=== PATIENT | male | born 1940 | race Caucasian/White ===

== ENCOUNTER 2016-12-13 10:17 | Inpatient (IN) ==
[2016-12-13] MEDS ORDERED: ASPIRIN 325 MG TABLET PO STA (10:35)
[2016-12-13] MEDS ORDERED: NITROGLYCERIN 2% OINT 1 INCH/GM PACK TOP STA (10:35)
[2016-12-13] MEDS ORDERED: ONDANSETRON 4 MG/2 ML VIAL IV STA (10:35)
[2016-12-13] MEDS ORDERED: ASPIRIN 325 MG TABLET ONE (10:45)
[2016-12-13 10:46] LABS: Basophils % 0.2 % (0.0-0.8); Hemoglobin 10.7 GM/DL (14.0-18.0); Immature Granulocytes % 0.4 %; Immature Granulocytes Absolute 0.05 #; Lymphocytes # 0.7 10*3/uL (1.4-4.0); Lymphocytes % 5.5 % (21.2-54.2); Mean Corpuscular HGB Conc 30.6 GM/DL (32-36); Mean Corpuscular Hemoglobin 24 PG (27-34); Mean Corpuscular Volume 79.7 FL (87-102); Mean Platelet Volume 11.2 FL (9.6-12.0); Monocytes # 0.7 10*3/uL (0.11-0.8); Monocytes % 5.2 % (1.7-12.7); Neutrophils # 11.8 10*3/uL (1.4-7.4); Neutrophils % 88.7 % (38.7-73.9); Platelet Count 290 T/CUMM (130-400); Red Blood Count 4.39 MC/CUMM (3.8-5.5); Red Cell Distribution Width 18.6 % (9.3-17.3); White Blood Count 13.3 T/CUMM (4-12)
[2016-12-13] MEDS ORDERED: NITROGLYCERIN 2% OINT 1 INCH/GM PACK TOP ONE (10:46)
[2016-12-13] MEDS ORDERED: ONDANSETRON 4 MG/2 ML VIAL ONE (10:46)
[2016-12-13 10:57] LABS: Partial Thromboplastin Time 26.8 SECS (0-40)
--- NOTE | 2016-12-13 10:57 | EKG Report ---
Stationary ECG Study [facility] ER Test Date: 12/13/2016 10:23:10 AM Pat Name: DALILA BEY Department: Room: Gender: M Digital Media Planner: : 1940 Requested by: Archie Worrell Order Number: [id number] Jag MD: MENDEZ IRWIN Intervals [place] Rate: 119 P: 78 [place]: 141 QRS: 6 QRSD: 94 T: 107 QT: 290 QTc: 361 Interpretive Statements SINUS TACHYCARDIA LEFT VENTRICULAR HYPERTROPHY AND ST-T CHANGE CANNOT RULE OUT ANTEROLATERAL ISHCEMIA Electronically Signed On 12-14-16 12:30:22 CDT by MENDEZ IRWIN [email or web address]
[2016-12-13 10:59] LABS: Alanine Aminotransferase < 9 U/L (16-61); Albumin 2.9 G/DL (3.4-5.0); Alkaline Phosphatase 75 U/L (45-117); Aspartate Amino Transferase 20 U/L (0-37); Bilirubin,Total < 0.39 MG/DL (0.2-1.0); Blood Urea Nitrogen 15 MG/DL (7-18); Calcium 8.6 MG/DL (8.5-10.1); Glucose 102 MG/DL (74-106); Potassium 3.6 MMOL/L (3.5-5.1); Sodium 143 MMOL/L (136-145); Total Protein 6.3 G/DL (6.4-8.3)
--- NOTE | 2016-12-13 11:25 | EKG Report ---
Stationary ECG Study [facility] ER Test Date: 12/13/2016 11:24:23 AM Pat Name: DALILA BEY Department: Room: Gender: M Property Claims Manager: : 1940 Requested by: Archie Worrell Order Number: [id number] Reading MD: MENDEZ IRWIN Intervals [place] Rate: 107 P: 77 [place]: 152 QRS: 5 QRSD: 93 T: 101 QT: 320 QTc: 382 Interpretive Statements SINUS TACHYCARDIA LEFT VENTRICULAR HYPERTROPHY AND ST-T CHANGE CANNOT RULE OUT ANTEROLATERAL ISCHEMIA Electronically Signed On 12-14-16 12:32:59 CDT by MENDEZ IRWIN [email or web address]
--- NOTE | 2016-12-13 11:30 | XRay Report ---
History: Chest pain Date: 12/13/2016 Study: Chest x-ray AP portable Comparison exam: May 10, 2016 The cardiac silhouette is upper normal size. There is no mediastinal mass. There is moderate aortic arch calcification. There is no gross pleural effusion. There are some chronic emphysematous changes. There is some mild hazy parenchymal disease in the right mid to lower lung, which could represent pneumonia or early asymmetric pulmonary edema. Osseous structures are unchanged with osteopenia and mild thoracic spondylosis. Impression: Hazy edema/infiltrate in the right mid to lower lung PROCEDURE INTERPRETED AT [facility] DEPARTMENT OF RADIOLOGY Final Report Signed by: Dr. Jodie Ramos
--- NOTE | 2016-12-13 11:35 | Emergency Department Note ---
Hyun Gamboa Brittany, am scribing for, and in the presence of, Mina Cerrato MD 10:50. Saqib Gamboa Doug C, MD, personally performed the services described in this documentation, ascribed by Aylin Purvis in my presence, and it is both accurate and complete . Arrival - Arrival Chief Complaint: Chest Pain ED Nursing Triage Note: c/o arm and shoulder pain onset friday night. pt had onset of chest pain and nausea and sob this am Mode of Arrival: Stretcher Limitations: No Limitations Source: Patient Time Seen by Provider: 12/13/16 10:35 - History of Present Illness HPI Narrative: Patient is a 76-year-old white male presents emergency room complaining of chest pain. Patient states this occurred when he was on his way to feed his dogs this morning around 6 AM. Patient states the pain was associated with diaphoresis and nausea and vomiting. Patient states he has never had any heart problems and does not have similar history of chest pain in the past. Patient called an ambulance and was given to sublingual nitroglycerin he is now pain- free. He denies any radiation of discomfort. Onset (ago): hour(s) (Started at 0600 this morning) Consistency: constant Severity: moderate Allergies/Adverse Reactions: Allergies Allergy/AdvReac Type Severity Reaction Status Date / Time No Known Allergies Allergy Verified 05/10/16 13:17 Home Medications: Home Medications Medication Instructions Recorded Confirmed Type Olmesartan [Benicar] 20 mg PO BEDTIME 11/01/14 12/13/16 History Omeprazole 20 mg PO BEDTIME 11/01/14 12/13/16 History Albuterol/Ipratropium Neb [Duoneb] 3 ml RESP TX TID #90 nebulization 05/12/16 Rx solution Tiotropium [place] [Spiriva 2 puff INH QAM 12/13/16 12/13/16 History Respimat] Review of System - Review of System 12 point system: reviewed and no additional remarkable complaints except as stated - Review of System Constitutional: Present: chills. Absent: diaphoresis Cardiovascular: Present: chest pain Gastrointestinal: Present: nausea, vomiting. Absent: hematemesis, melena Medical,Surgical,& Family Hx - Medical History Cardio: History of: Hypertension No history of: Cardiac Dysrhythmia, CHF, IA Psychological: History of: Anxiety Disorders Neurology: History of: Cerebrovascular Accident, TIA No history of: Seizures HEENT: No history of: Oral Cancer (THROAT CANCER-1999) Endocrine: History of: Dyslipidemia Respiratory: History of: Bronchitis, COPD, Respiratory Problems (o2 at home at 2liters) Genitourinary: History of: Prostate Problems (prostate cancer) Gastrointestinal: History of: GERD, GI Problems (stomach ulcer, part of stomach removed 1969) Musculoskeletal: History of: Back/Neck Problems (arthritis in neck) Hematology: No history of: Blood Transfusion Reaction Other: History of: Cancer (prostate,esophageal) No history of: Anesthesia Reactions - Surgical History Cardiac Surgeries: Sugical HX of: Cardiac Catheterization HEENT Surgeries: Surgical HX of: Eye Surgery (cataracts) Patient denies: Tonsilectomy & Adenoidectomy Abdominal Surgeries: Surgical HX of: Abdominal Surgery (stomach surgery 1969), Appendectomy, Colonoscopy, EGD Patient denies: Cholecystectomy Reproductive Surgeries: Surgical HX of;: Prostate Surgery (prostate ca) Orthopedic Surgeries: Patient denies;: Orthopedic Surgery, Total Hip Replacement, Total Knee Replacement - Family History Family History: Reports;: Family Heart Disease (mom) Denies;: Family Anesthesia Reaction, Family Cancer, Family Diabetes, Family Hypertension, Family Psychiatric Problems, Family Stroke - Social History Smoking Status: Smoker, status unknown Frequency of Alcohol Use: None Type of Drug Use: None Exam Vital Signs: Vital Signs Temperature 99.0 F 12/13/16 10:21 Pulse Rate 115 H 12/13/16 10:21 Respiratory Rate 16 12/13/16 10:38 Blood Pressure 128/90 12/13/16 10:21 O2 Sat by Pulse Oximetry 96 12/13/16 10:38 - General General appearance: alert, in no apparent distress - Head Head exam: Present: atraumatic, normocephalic, normal inspection - Eye Eye exam: Present: normal appearance, PERRL, EOMI. Absent: scleral icterus, conjunctival injection, nystagmus, miosis, mydriasis, periorbital swelling, periorbital tenderness - ENT ENT exam: Present: normal exam, normal oropharynx, mucous membranes moist, normal external ear exam - Neck Neck exam: Present: normal inspection, full ROM, trachea midline. Absent: tenderness, meningismus, lymphadenopathy, thyromegaly - Chest Chest inspection: Present: normal inspection, symmetric chest wall rise. Absent : tenderness, rash, abscess - Respiratory Respiratory exam: Present: normal lung sounds bilaterally. Absent: prolonged expiratory phase, rales, respiratory distress, rhonchi, stridor, wheezes - Cardiovascular Cardiovascular exam: Present: regular rate, irregular rhythm, normal heart sounds. Absent: murmur, rubs, gallop, clicks - Abdominal Exam Abdominal exam: Present: soft, normal bowel sounds. Absent: distention, tenderness, guarding, rebound, rigidity - Rectal Exam Rectal exam: Present: deferred - Extremities Exam Extremities exam: Present: normal inspection, full ROM, normal capillary refill. Absent: tenderness, pedal edema, joint swelling, calf tenderness - Back Exam Back exam: Present: normal inspection, full ROM. Absent: tenderness, muscle spasm, rashes - Neurological Exam Neurological exam: Present: alert, oriented X3, CN II-XII intact. Absent: motor sensory deficit - Psychiatric Psychiatric exam: Present: normal affect, normal mood. Absent: depressed, agitated, anxious, flat affect, manic - Skin Skin exam: Present: warm, dry, intact, normal color. Absent: rash, cyanosis, diaphoresis, erythema, pallor, mottled Course Course Narrative: Patient's clinical presentation, laboratory and radiographic and electrocardiographic findings were discussed with Dr. Madrid. He will see the patient emergency room and taken to the cardiac catheterization laboratory. Results - Labs CBC & BMP: 12/13/16 10:30 12/13/16 10:30 Lab Results: I have reviewed the patients labs Labs: Laboratory Tests 12/13/16 12/13/16 10:30 10:30 Sodium 143 Potassium 3.6 Chloride 112 H Carbon Dioxide 26 Anion Gap 8.6 BUN 15 Creatinine 0.70 GFR Calculation 101 BUN/Creatinine Ratio 21.00 H Glucose 102 Calculated Osmolality 285.0 Calcium 8.6 Total Bilirubin < 0.39 AST 20 ALT < 9 L Alkaline Phosphatase 75 Troponin I 2.310 H Total Protein 6.3 L Albumin 2.9 L Globulin 3.4 Albumin/Globulin Ratio 0.8 L - EKG EKG results: interpreted by ERMD EKG shows: tachycardia (Heart rate 119 bpm) - Impressions T-wave inversion in V5 and 6. Positive LVH by voltage criteria - Diagnostic Findings Procedure: Chest x-ray: report reviewed by me (Hazy edema/infiltrate in the right mid to lower lung) Disposition Clinical Impression: Non-STEMI (non-ST elevated myocardial infarction) Case discussed with: patient, patient's family Disposition: Still a Patient Condition: Guarded Time of Disposition: 11:35
[2016-12-13] MEDS ORDERED: LIDOCAINE 1% 20 ML VIAL ONE (11:44)
[2016-12-13] MEDS ORDERED: HEPARIN/NACL 0.9% 2 UNITS/ML 1,000 ML IV ONE (11:44)
[2016-12-13] MEDS ORDERED: diphenhydrAMINE CAP 25 MG CAPSULE ONE (11:58)
[2016-12-13] MEDS ORDERED: DIAZEPAM 5 MG TABLET ONE (11:58)
[2016-12-13] MEDS ORDERED: diphenhydrAMINE CAP 50 MG CAPSULE PO ONE (12:02)
[2016-12-13] MEDS ORDERED: DIAZEPAM 5 MG TABLET PO ONE (12:02)
--- NOTE | 2016-12-13 12:10 | Cardiology History & Physical ---
History of Present Illness History of present illness: Cardiology history and physical 76-year-old man awakened around 6 AM with chest pain and shortness of breath and diaphoresis. EKG shows sinus rhythm with LVH with strain pattern. Troponin level 2.31. Creatinine 0.7. Patient is diaphoretic pulse is 90. O2 sat 94% on 2 L cannula. No prior history of ND. No history of CHF. The patient has emphysema followed by Dr. Mauro. Chronic hypertension taking Benicar 20 mg daily. No history of diabetes. History of TIA but no stroke. The patient is an active smoker and still smokes about 5 cigarettes daily. He does not drink any alcohol. 6 feet 1 inches tall , approximately 135 pounds. Status post bilateral carotid artery stents in [place] around 2012. Status post partial gastrectomy for ulcer disease in the late . Status post [facility] 1979 with abdominal expiration. No allergies. Home medications Prilosec 20 mg daily and Benicar 20 mg daily. 59 years. He and his live in [place]. They have 7 children. EKG shows sinus rhythm with LVH with strain pattern. Chest x-ray shows COPD lab data Sodium 143 potassium 3.6 chloride 112 CO2 26 BUN 15 creatinine 0.7 glucose 102 AST 20 ALT 9 INR 1.0 white count 13.3 hemoglobin 10.7 hematocrit 35.0 MCV of 79. Bilateral carotid bruits skin warm and diaphoretic. Edentulous. Not wearing dentures. Regular rhythm. 2/6 systolic murmur upper sternal border. No AI. Decreased breath sounds throughout but no wheezing or rhonchi. Abdomen soft benign with well-healed surgical scars. Femoral pulses are 2+ with bilateral bruits. Distal pulses are 2+ no edema. Impression non-Q-wave ND Status post bilateral carotid stents 2013 in [place] History of TIA but no recent neurological symptoms Active smoker Significant emphysema followed by Dr. Mauro Bilateral femoral bruits but good pulses Chronic hypertension GE reflux Status post partial gastrectomy for bleeding ulcers mid 1979 Plan Cardiac cath and probable stent procedure, risk benefit reviewed with patient and he agrees proceed as outlined. Normal saline hydration Risk factor modification Home Medications Medication Instructions Recorded Confirmed Type Olmesartan [Benicar] 20 mg PO BEDTIME 11/01/14 12/13/16 History Omeprazole 20 mg PO BEDTIME 11/01/14 12/13/16 History Albuterol/Ipratropium Neb [Duoneb] 3 ml RESP TX TID #90 nebulization 05/12/16 Rx solution Tiotropium [place] [Spiriva 2 puff INH QAM 12/13/16 12/13/16 History Respimat] Allergies Allergy/AdvReac Type Severity Reaction Status Date / Time No Known Allergies Allergy Verified 05/10/16 13:17 Medical,Surgical,& Family Hx - Medical History Cardio: History of: Hypertension No history of: Cardiac Dysrhythmia, CHF, ND Psychological: History of: Anxiety Disorders Neurology: History of: Cerebrovascular Accident, TIA No history of: Seizures HEENT: No history of: Oral Cancer (THROAT CANCER-1999) Endocrine: History of: Dyslipidemia Respiratory: History of: Bronchitis, COPD, Respiratory Problems (o2 at home at 2liters) Genitourinary: History of: Prostate Problems (prostate cancer) Gastrointestinal: History of: GERD, GI Problems (stomach ulcer, part of stomach removed 1969) Musculoskeletal: History of: Back/Neck Problems (arthritis in neck) Hematology: No history of: Blood Transfusion Reaction Other: History of: Cancer (prostate,esophageal) No history of: Anesthesia Reactions - Surgical History Cardiac Surgeries: Sugical HX of: Cardiac Catheterization HEENT Surgeries: Surgical HX of: Eye Surgery (cataracts) Patient denies: Tonsilectomy & Adenoidectomy Abdominal Surgeries: Surgical HX of: Abdominal Surgery (stomach surgery 1969), Appendectomy, Colonoscopy, EGD Patient denies: Cholecystectomy Reproductive Surgeries: Surgical HX of;: Prostate Surgery (prostate ca) Orthopedic Surgeries: Patient denies;: Orthopedic Surgery, Total Hip Replacement, Total Knee Replacement - Family History Family History: Reports;: Family Heart Disease (mom) Denies;: Family Anesthesia Reaction, Family Cancer, Family Diabetes, Family Hypertension, Family Psychiatric Problems, Family Stroke - Social History Smoking Status: Smoker, status unknown Frequency of Alcohol Use: None Type of Drug Use: None Cardiology Physical Exam - Constitutional Vitals: Vital Signs Temp Pulse Resp BP Pulse Ox 99.0 F 115 H 16 128/90 96 12/13/16 10:21 12/13/16 10:21 12/13/16 10:38 12/13/16 10:21 12/13/16 10:38 Intake and Output 12/12/16 12/13/16 12/13/16 23:59 07:59 15:59 Intake Total 300 / 300 Balance 300 / 300 Intake: Intake - Additional IV 300 / 300 Volume (mLs) Left Antecubital 300 / 300 Other: Weight 68.039 kg Patient Weight 12/13/16 23:59 Weight 68.039 kg Result/EKG - Labs CBC & BMP: 12/13/16 10:30 12/13/16 10:30 Labs: Laboratory Results - last 24 hr 12/13/16 12/13/16 12/13/16 10:30 10:30 10:30 WBC 13.3 H RBC 4.39 Hgb 10.7 L Hct 35.0 L MCV 79.7 L MCH 24 L MCHC 30.6 L RDW 18.6 H Plt Count 290 MPV 11.2 Neut % (Auto) 88.7 H Lymph % (Auto) 5.5 L [place] % (Auto) 5.2 Eos % (Auto) 0.0 Baso % (Auto) 0.2 Neut # (Auto) 11.8 H Lymph # (Auto) 0.7 L [place] # (Auto) 0.7 Eos # (Auto) 0.0 Baso # (Auto) 0.0 Immature Gran % 0.4 Nucleated RBC % 0.0 Immature Gran # 0.05 Nucleated RBCs # 0.00 Immature Plt Fraction 0.0 INR 1.0 PT Patient/Control Mix 11.0 D-Dimer, Quantitative 1.0 Circ Anticoag PTT 26.8 Sodium 143 Potassium 3.6 Chloride 112 H Carbon Dioxide 26 Anion Gap 8.6 BUN 15 Creatinine 0.70 GFR Calculation 101 BUN/Creatinine Ratio 21.00 H Glucose 102 Calculated Osmolality 285.0 Calcium 8.6 Total Bilirubin < 0.39 AST 20 ALT < 9 L Alkaline Phosphatase 75 Troponin I Total Protein 6.3 L Albumin 2.9 L Globulin 3.4 Albumin/Globulin Ratio 0.8 L 12/13/16 10:30 WBC RBC Hgb Hct MCV MCH MCHC RDW Plt Count MPV Neut % (Auto) Lymph % (Auto) [place] % (Auto) Eos % (Auto) Baso % (Auto) Neut # (Auto) Lymph # (Auto) [place] # (Auto) Eos # (Auto) Baso # (Auto) Immature Gran % Nucleated RBC % Immature Gran # Nucleated RBCs # Immature Plt Fraction INR PT Patient/Control Mix D-Dimer, Quantitative Circ Anticoag PTT Sodium Potassium Chloride Carbon Dioxide Anion Gap BUN Creatinine GFR Calculation BUN/Creatinine Ratio Glucose Calculated Osmolality Calcium Total Bilirubin AST ALT Alkaline Phosphatase Troponin I 2.310 H Total Protein Albumin Globulin Albumin/Globulin Ratio
[2016-12-13] MEDS ORDERED: fentaNYL 100 MCG/2 ML VIAL ONE (12:19)
[2016-12-13] MEDS ORDERED: MIDAZOLAM 2 MG/2 ML VIAL ONE ×2 (12:19→13:18)
--- NOTE | 2016-12-13 12:36 | History and Physical Update ---
Sedation H&P Update - History and Physical H&P was reviewed, the patient examined and there: are no changes in the patients condition since last H&P was completed. - Dictation Physical: refer to H&P completed by admitting physician - Physical Exam Mental Status: alert and oriented Heart: regular rate and rhythm Lung: other (rhonchi and globally diminished breath sounds) Abdomen: other (many surgical scars) Vitals: within normal limits - Sedation Plan for Sedation: minimal ASA Class: III Airway Assessment: Class I: Soft palate, uvula, fauces, pillars visible
[2016-12-13] MEDS ORDERED: BIVALIRUDIN 250 MG VIAL IV ONE (13:18)
[2016-12-13] MEDS ORDERED: NITROGLYCERIN DRIP 50 MG/250 ML BOTTLE IV ONE (13:28)
[2016-12-13] MEDS ORDERED: TICAGRELOR 90 MG TABLET ONE (13:28)
[2016-12-13] MEDS ORDERED: ONDANSETRON 4 MG/2 ML VIAL IV PRN (13:38)
[2016-12-13] MEDS ORDERED: ZALEPLON 5 MG CAPSULE PO PRN (13:38)
[2016-12-13] MEDS ORDERED: NITROGLYCERIN SL 0.4 MG TABLET SL PRN (13:38)
[2016-12-13] MEDS ORDERED: hydrALAZINE 20 MG/1 ML VIAL IV PRN (13:40)
--- NOTE | 2016-12-13 13:55 | Cardiac Catheterization ---
Date of Procedure:: 12/13/16 Pre-op Diagnosis: Non-ST elevation myocardial Post-op diagnosis: other (Two-vessel coronary disease with SENIOR SUPPORT ENGINEER of the first diagonal and high-grade proximal LAD stenosis (greater than 80%) multilevel daughter vessel disease in the circumflex and LAD distribution moderate to high- grade ostial proximal right PDA stenosis) Procedure: Procedures: 1. Left heart catheterization resting hemodynamics 2. Selective left and right coronary angiography 3. Failed attempt PCI of the first diagonal (highly calcified chronic total occlusion) 4. PCI of the proximal left anterior descending artery with a 3.5 x 15 mm Xience Alpine drug-eluting stent postdilated to 18 madeleine with a 3.5 x 12 mm NC Quantum apex After consent was taken from the patient. Taken to the catheterization lab for left heart catheterization via the femoral artery. Time out was taken and recorded. 1% lidocaine was infiltrated in the skin and subcutaneous tissue overlying the right femoral artery. Modified Seldinger technique and an 18- gauge Cook needle was used for access to the right femoral artery. An 0.35 J- wire was advanced through the needle into the central aorta under fluoroscopy. A small skin was made and a 6 Maltese sheath was placed over the wire. The sheath was aspirated and flushed. A JL46 was advanced over the wires in the left main coronary artery was selectively engaged. Multiple orthogonal views of the left system were obtained. The catheter was then exchanged over the wire. The sheath was aspirated and flushed. A JR4 catheter was advanced over the wire into the central aorta. The right coronary was selectively engaged and orthogonal views of the right coronary artery were obtained. The catheter was then exchanged over the wire, the sheath was aspirated and flushed. At this time an angled pigtail catheter was advanced across the aortic valve into the ventricle. Pressure measurements were obtained and pullback measurements were performed. The delimber operator reviewed the films. The patient was given Angiomax bolus and infusion and room was set up for the intervention mode. This time an EBU 3.5 guide cath advanced over the J-wire the central aorta the left main coronary was slightly engaged. A 180 cm on a pro-water wire was advanced in the distal LAD and second [place] pro-water wire was advanced in cannulation of the second diagonal it was totally occluded and heavily calcified was quite easy but the stump could not be penetrated. Attention was turned away from this daughter vessel and primary attention was given to the mother vessel. At this time the proximal LAD was ballooned with a 2.5 x 12 mm apex and appear to have good yielding this was 14 madeleine. The balloon was removed and this was stented with a 3.5 x 15 mm Xience Alpine drug-eluting stent. This was followed with postdilatation to 18 madeleine with a 3.5 x 12 mm NC Quantum apex. There was some moderate disease in the mid segment of the LAD that appear to be worse with the wire being placed the wire was pulled back nitroglycerin was given and there was improvement there was curtain rodding this appear to be approximately 50% after the wire was pulled back it was at the takeoff of the second diagonal. The sheath was aspirated and flushed and a right femoral and iliac angiography was performed. The access site was amenable for closure and the area was reprepped with ChloraPrep and draped with sterile towels. The Angio-Seal closure device was used in standard technique. There was no hematoma and distal pulses were good. Total diagnostic fluoroscopy time 14.3 minutes with total fluoroscopy dose 694 mGy and total contrast exposure 264 cc of Omnipaque FINDINGS: LV: 159/0 LVEDP: 8 Ao: 158/73 EF: Not assessed LM: There is mild 20-30% aorta ostial stenosis of the left main. There is no gradient with cannulation. LAD: Left anterior descending artery is diffusely diseased heavily calcified vessel has a focal area of 80% with RAYSA-3 flow in the proximal segment the first diagonal is 100% occluded and has a notable with highly calcified disease remainder the vessel is tortuous and there is moderate disease throughout the proximal 40-50% stenosis just before the takeoff of the second diagonal the vessel reaches the apex of ventricular myocardium before termination. The second diagonal shortly bifurcates after leaving the mother vessel is diffusely diseased. LCx: This is a nondominant vessel. This vessel has very little of the vessel running in the AV groove shortly after leaving the left main at least AV groove and has primarily a large obtuse marginal to the lateral wall it bifurcates and is diffusely diseased is moderate. It may be severe and some images. RCA: There is a tortuous dominant highly calcified vessel. It is diffusely diseased worsening approximately 70% of the ostial proximal portion of the right PDA RFA/DAKOTAH: Right femoral iliac arteries are calcified angiographically normal Assessment: 1. Diffuse three-vessel coronary artery disease including the left main and daughter branches of both main branches on the left. High-grade epicardial stenosis in the proximal LAD status post successful PCI. It should be noted that the patient's pain was reproduced with balloon inflations in the LAD 2. Uncontrolled hypertension 3. Severe advanced COPD with continued tobacco use PLAN: 1. Monitor in the ICU 2. Standard non-ST elevation myocardial infarction therapy including ARB beta- naty statin dual antiplatelet therapy 3. Smoking cessation education 4. Cardiac rehabilitation consultation 5. Therapeutic lifestyle changes 6. Assess further angina and consider additional intervention if symptomatic clinically. Implants: 3.5 x 15 mm Xience drug-eluting stent Angio-Seal closure device Anesthesia: moderate conscious sedation Surgeon / Physician: Karoline Benson Lamination Builder: none Estimated blood loss: none Specimens: none sent Condition: stable Disposition: ICU/CCU - Medications / Follow-up
[2016-12-13] MEDS ORDERED: SODIUM CHLORIDE 0.45% 1,000 ML IV SCH (14:00)
[2016-12-13] MEDS: IPRATROPIUM 500 MCG/2.5 ML NEB RESP TX SCH ×2 (15:00→19:55)
[2016-12-13] MEDS: ALBUTEROL/IPRATROPIUM 3 ML NEB RESP TX SCH ×2 (15:00→19:50)
--- NOTE | 2016-12-13 17:31 | ECHO Report ---
[facility]nt Exam Date: 12/13/2016 14:49 Referring Physician: Technologist: Angelica Grigsby RDCS Age: 76 Ht (in): 73 Wt (lb): 150 Gender: M Exam Location: [facility] Echo Indications: Non-ST elevation (NSTEMI) myocardial infarction, Essential (primary) hypertension, COPD, s/p CATH with stents BP: 128 / 90 HR: 92 Rhythm: Sinus Technical Quality: good IMPRESSIONS Left ventricular ejection fraction is estimated at 50 %. There is mild anterolateral wall hypokinesis. Diastolic parameters are most consistent with grade 1 diastolic dysfunction.Mild left ventricular hypertrophy. Senescent aortic and mitral valve changes with no stenosis Mild aortic insufficiency MEASUREMENTS (Male / Female) Normal Values 2D ECHO LV Diastolic Diameter PLAX 4.8 cm 4.2 - 5.9 / 3.9 - 5.3 cm LV Systolic Diameter PLAX 4.0 cm LV Fractional Shortening PLAX 15.3 % IVS Diastolic Thickness 1.3 cm 0.6 - 1.0 / 0.6 - 0.9 cm LVPW Diastolic Thickness 1.3 cm 0.6 - 1.0 / 0.6 - 0.9 cm RV Internal Dim ED PLAX 3.6 cm Aortic Root Diameter 3.8 cm LA Systolic Diameter LX 3.6 cm 3.0 - 4.0 / 2.7 - 3.8 cm DOPPLER TR Peak Velocity 234.0 cm/s TR Peak Gradient 21.9 mmHg FINDINGS Left Ventricle Normal left ventricular cavity size. Mild left ventricular hypertrophy. Left ventricular ejection fraction is estimated at 50 %. There is mild anterolateral wall hypokinesis. Diastolic parameters are most consistent with grade 1 diastolic dysfunction. Right Ventricle The right ventricle is normal in size and function. Right Atrium The right atrium is normal in size. Left Atrium The left atrium is normal in size. Mitral Valve Mildly thickened mitral valve. Mild mitral annular calcification. Mild mitral valve regurgitation. Aortic Valve Aortic valve not well visualized. Moderate aortic valve calcification. No aortic valve stenosis.Mild aortic valve regurgitation. Tricuspid Valve Morphologically normal tricuspid valve. Trace tricuspid valve regurgitation. Tricuspid regurgitation velocities suggest a RVSP of 30 mmHg plus the right atrial pressure. Pulmonic Valve Pulmonic valve not well visualized. Pericardium Normal pericardium without effusion. Aorta Normal ascending aorta dimension. Karoline Benson (Electronically Signed) Final Date: 13 December 2016 17:27
[2016-12-13] MEDS ORDERED: NON-FORMULARY MEDICATION (Omeprazole [Omeprazole] 20 MG) PO SCH (21:00)
[2016-12-13] MEDS: ATORVASTATIN 40 MG TABLET PO SCH (21:17)
[2016-12-13] MEDS: CARVEDILOL 6.25 MG TABLET PO SCH (21:18)
[2016-12-13] MEDS: OLMESARTAN 20 MG TABLET PO SCH (21:18)
[2016-12-13] MEDS: ACETAMINOPHEN 325 MG TABLET PO PRN (21:18)
[2016-12-13] MEDS: TICAGRELOR 90 MG TABLET PO SCH (21:19)
[2016-12-13] MEDS ORDERED: SODIUM CHLORIDE 0.9% 300 ML IV ONE (21:45)
[2016-12-13] MEDS: SODIUM CHLORIDE 0.9% 1,000 ML IV SCH (23:10)
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
[2016-12-14 04:47] LABS: Basophils % 0.3 % (0.0-0.8); Eosinophils % 0.2 % (0.00-10.9); Immature Granulocytes % 0.4 %; Immature Granulocytes Absolute 0.05 #; Lymphocytes # 1.8 10*3/uL (1.4-4.0); Mean Corpuscular Hemoglobin 25 PG (27-34); Mean Corpuscular Volume 79.9 FL (87-102); Mean Platelet Volume 11.1 FL (9.6-12.0); Monocytes # 0.8 10*3/uL (0.11-0.8); Monocytes % 6.9 % (1.7-12.7); Neutrophils # 9.2 10*3/uL (1.4-7.4); Neutrophils % 77.2 % (38.7-73.9); Platelet Count 241 T/CUMM (130-400); Red Blood Count 3.63 MC/CUMM (3.8-5.5); Red Cell Distribution Width 18.6 % (9.3-17.3); White Blood Count 11.9 T/CUMM (4-12)
[2016-12-14 05:33] LABS: Alanine Aminotransferase < 9 U/L (16-61); Blood Urea Nitrogen 18 MG/DL (7-18); Calcium 8.1 MG/DL (8.5-10.1); Cholesterol 102 MG/DL (50-200); Glucose 81 MG/DL (74-106); HDL Cholesterol 29 MG/DL (40-60); Osmolality,Calculated 286.8 MOS/KG (273-304); Potassium 3.8 MMOL/L (3.5-5.1); Risk Ratio 3.52; Sodium 144 MMOL/L (136-145); Triglycerides 60 MG/DL (2-150)
[2016-12-14] MEDS: SODIUM CHLORIDE 0.9% 1,000 ML IV SCH ×4 (06:16→23:46)
[2016-12-14] MEDS: IPRATROPIUM 500 MCG/2.5 ML NEB RESP TX SCH (07:40)
[2016-12-14] MEDS: ALBUTEROL/IPRATROPIUM 3 ML NEB RESP TX SCH ×3 (07:42→19:16)
[2016-12-14] MEDS: ASPIRIN EC 81 MG TABLET PO SCH (08:37)
[2016-12-14] MEDS: PANTOPRAZOLE 40 MG TABLET PO SCH (08:37)
[2016-12-14] MEDS: TICAGRELOR 90 MG TABLET PO SCH ×2 (08:38→21:09)
[2016-12-14] MEDS: CARVEDILOL 6.25 MG TABLET PO SCH ×2 (08:39→21:09)
[2016-12-14] MEDS ORDERED: LISINOPRIL 10 MG TABLET PO SCH (09:00)
[2016-12-14] MEDS: ACETAMINOPHEN 325 MG TABLET PO PRN (20:25)
[2016-12-14] MEDS: OLMESARTAN 20 MG TABLET PO SCH (21:09)
[2016-12-14] MEDS: ATORVASTATIN 40 MG TABLET PO SCH (21:09)
[2016-12-15] MEDS: SODIUM CHLORIDE 0.9% 1,000 ML IV SCH (06:27)
[2016-12-15] MEDS: IPRATROPIUM 500 MCG/2.5 ML NEB RESP TX SCH (08:05)
[2016-12-15] MEDS: ALBUTEROL/IPRATROPIUM 3 ML NEB RESP TX SCH ×3 (08:11→19:22)
[2016-12-15] MEDS: TICAGRELOR 90 MG TABLET PO SCH ×2 (09:37→21:02)
[2016-12-15] MEDS: ASPIRIN EC 81 MG TABLET PO SCH (09:37)
[2016-12-15] MEDS: CARVEDILOL 6.25 MG TABLET PO SCH ×2 (09:37→21:02)
[2016-12-15] MEDS: PANTOPRAZOLE 40 MG TABLET PO SCH (09:37)
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
[2016-12-15] MEDS: OLMESARTAN 20 MG TABLET PO SCH (17:33)
[2016-12-15] MEDS: ACETAMINOPHEN 325 MG TABLET PO PRN (21:01)
[2016-12-15] MEDS: ATORVASTATIN 40 MG TABLET PO SCH (21:02)
[2016-12-16 05:52] LABS: Calcium 8.3 MG/DL (8.5-10.1); Potassium 3.4 MMOL/L (3.5-5.1)
[2016-12-16] MEDS: ALBUTEROL/IPRATROPIUM 3 ML NEB RESP TX SCH ×2 (07:11→13:28)
--- NOTE | 2016-12-16 07:24 | Physician Query Form ---
CLICK EDIT DOCUMENT TO SELECT QUERY ANSWER --> OK --> SIGN Paulina Vogel RN, CCDS Certified Clinical Trial Mgr W) [phone] (f) [phone] [email or web address] PROVIDERS: Make your selection(s) from the choices in EACH section by typing an "x" and enter comments in the comment section. Please use your independent medical judgment in providing your response. This request does not imply that any particular answer is desired or expected. CLINICAL INDICATORS: (Providers should not edit this section) The medical record indicates that the patient was admitted with a Non-STEMI, history of "significant emphysema", "O2 at home at 2 liters" and the patient was admitted and placed on 2 liters. Based on the above, could you clarify the appropriate diagnosis, if significant , that supports the above abnormalities and additional evaluation, monitoring, and/or treatment rendered: ( x) Patient was treated or monitored for chronic respiratory failure ( ) patient was not treated or monitored for chronic respiratory failure ( ) Other, please specify: ( ) Clinically unable to determine COMMENTS: PLEASE ALSO DOCUMENT RESPONSE IN PROGRESS NOTES AND/OR DISCHARGE SUMMARY Use of terms such as suspected, likely, or probable (associated with a specific diagnosis that is being evaluated, monitored, or treated as if it exists) are acceptable and can be restated in the discharge summary if not ruled out. MTDD
[2016-12-16] MEDS: PANTOPRAZOLE 40 MG TABLET PO SCH (09:23)
[2016-12-16] MEDS: CARVEDILOL 6.25 MG TABLET PO SCH (09:23)
[2016-12-16] MEDS: ASPIRIN EC 81 MG TABLET PO SCH (09:23)
[2016-12-16] MEDS: TICAGRELOR 90 MG TABLET PO SCH (09:23)
[2016-12-16] MEDS: OLMESARTAN 20 MG TABLET PO SCH (09:23)
[2016-12-16] MEDS ORDERED: POTASSIUM CHLORIDE 20 MEQ TABLET PO ONE (13:21)
[2016-12-16 15:53] VITALS: BP 163/76
--- NOTE | 2016-12-16 16:18 | Cardiology Progress Note ---
Sukhjinder Gamboa Vanessa, RN, am scribing for, and in the presence of, Valentina Verde MD 16:17. Assessment and Plan - Time spent with patient Time spent with patient: Greater than 30 minutes Time spent discussing smoking cessation with patient: more than 10 minutes (1) Non-STEMI (non-ST elevated myocardial infarction) Status: Acute Assessment and plan: SEE PLAN OF CARE LISTED BELOW. Current Visit: Yes (2) COPD (chronic obstructive pulmonary disease) Status: Chronic Assessment and plan: SEE PLAN OF CARE LISTED BELOW. Current Visit: No (3) Nicotine addiction Status: Chronic Assessment and plan: SEE PLAN OF CARE LISTED BELOW. Current Visit: No (4) Emphysema of lung Status: Chronic Assessment and plan: SEE PLAN OF CARE LISTED BELOW. Current Visit: No Qualifiers: Emphysema type: panlobular Qualified Code(s): J43.1 - Panlobular emphysema (5) HTN (hypertension) Status: Chronic Assessment and plan: SEE PLAN OF CARE LISTED BELOW. Current Visit: No Qualifiers: Hypertension type: essential hypertension Qualified Code(s): I10 - Essential (primary) hypertension (6) GERD (gastroesophageal reflux disease) Status: Chronic Assessment and plan: SEE PLAN OF CARE LISTED BELOW. Current Visit: Yes Cardiology - PN: Subj Interval history: PRIMARY LOSS CONTROL REPRESENTATIVE: DR. ROSALES (NEW) SUMMARY: Mr. Kent is a 76 year old white male with risk factors significant for: age, hypertension, family history of CAD, and chronic tobaccoism. Past medical history includes TIA, carotid artery disease with previous stenting, emphysema and COPD, laryngeal cancer, GERD. Past surgical history of partial gastrectomy due to bleeding ulcers. Patient presented to [facility] ER on December 13 with chest pain, shortness of breath, and diaphoresis. Workup revealed NSTEMI, and he was taken urgently the same afternoon for diagnostic left heart catheterization and revascularization by Dr. Benson. Patient underwent percutaneous coronary intervention of the proximal left anterior descending artery with drug eluting stent. Cath also noted highly calcified chronic total occlusion of first diagonal branch with failed attempt at PCI. Per echocardiogram, mild LVH, EF 50% with mild anterolateral wall hypokinesis, mild diastolic dysfunction, mild AI, no significant valvular disease. Post PCI, patient was monitored in CCU overnight and transferred to telemetry unit the next day. Troponin peaked at 3.020. November: Overall hemodynamically stable since transfer to telemetry. Temp last night 101.3F, improved this morning 97F. Sinus rhythm with PACs/PVCs per tele monitoring, no overt ectopy or sustained dysrhythmia. Labs reviewed. Hypokalemic with K+ 3.4. Renal function stable. Appetite is fair this afternoon. Right groin soft without hematoma. Distal pulses palpable bilaterally. SBP 130-160 mmHg. Sinus rhythm with occasional PAC/PVC. No chest pain, dyspnea, or other anginal complaint. Patient is requesting to go home today. ASSESSMENT/PLAN: 1. NSTEMI - Post PCI of proximal LAD on 12/13 with placement of drug eluting stent. EF per echo 50%. No further anginal complaint. No overt s/s heart failure. Continue dual antiplatelet therapy with low dose ASA, Brilinta 90 mg by mouth BID. Continue statin, beta naty, ARB. 2. CORONARY ARTERY DISEASE - Continue current plan of care. 3. HYPERTENSION - BP still suboptimally controlled at times. Will adjust antihypertensive regimen. 4. CAROTID ARTERY DISEASE - Chronic, s/p carotid artery stenting; Appears stable at this time without neurological symptoms. 5. EMPHYSEMA/COPD - Chronic; Appears stable at this time; Continue DuoNebs 6. GERD - Continue PPI. 7. HYPOKALEMIA - K+ 3.4. K-Dur 20 meq by mouth x 1 dose today. The patient is requesting to be discharged home. He has not had any recurrent angina and is clinically stable. He has been on Benicar, but cannot afford this and has been using samples. We will try him on Cozaar at discharge to see if this is better covered by his insurance company. I have emphasized the importance of dual antiplatelet therapy compliance with him and his . The importance of tobacco cessation has been addressed. Exam (Progress Note) - Constitutional Vitals: Period Temp Pulse Resp BP Sys/Monroe Pulse Ox Last 24 Hr 97 F-101.3 F 60-86 16-20 118-195/58-107 92-98 General appearance: no acute distress, under weight, other (frail) - Head Head exam: Present: normal inspection. Absent: abrasion, contusion, hematoma, laceration - Eye Eye exam: Present: EOMI. Absent: periorbital swelling, scleral icterus Pupils: Present: HAZEL. Absent: dilated, fixed - Neck Neck exam: Absent: lymphadenopathy, thyromegaly - Respiratory Respiratory exam: Present: other (coarse lung sounds throughout). Absent: accessory muscle use, wheezes - Cardiovascular Cardiovascular exam: Present: carotid bruit (bilateral), regular rate and rhythm , systolic murmur - GI/Abdominal GI/Abdominal exam: Present: normal bowel sounds, soft. Absent: ascites, firm, guarding, mass, tenderness, rebound - Extremities Exam Extremities exam: Present: normal capillary refill, full ROM, other (Decreased pulses bilateral lower extremities). Absent: calf tenderness, edema - Back Exam Back exam: Present: normal inspection - Neurological Exam Neurological exam: Present: alert, oriented X3 - Psychiatric Psychiatric exam: Present: normal affect, normal mood. Absent: agitated, anxious - Skin Skin exam: Present: warm, dry, intact. Absent: abrasion, cyanosis, diaphoretic , rash Result/EKG - Labs CBC & BMP: 12/14/16 04:27 12/16/16 04:37 Lab Results: I have reviewed the past 24 hour labs Labs: Laboratory Results - last 24 hr 12/16/16 04:37 Sodium 143 Potassium 3.4 L Chloride 112 H Carbon Dioxide 23 Anion Gap 11.4 BUN 10 Creatinine 0.60 L GFR Calculation 106 BUN/Creatinine Ratio 16.00 Glucose 83 Calculated Osmolality 282.0 Calcium 8.3 L - EKG EKG results: interpreted by me EKG shows: sinus rhythm (occasional PAC/PVC) Quality Measures - VTE Contraindication to Pharmacological VTE Prophylaxis: High Risk of Bleeding Specialty Discharge - Follow Up or Referrals IAmmon Jennifer, MD, personally performed the services described in this documentation, ascribed by Lisa Slaughter RN in my presence, and it is both accurate and complete 618 .
--- NOTE | 2016-12-16 16:24 | Discharge Summary ---
Hospital Course - Hospital Course Hospital Course: SUMMARY: Mr. Kent is a 76 year old white male with risk factors significant for: age, hypertension, family history of CAD, and chronic tobaccoism. Past medical history includes TIA, carotid artery disease with previous stenting, emphysema and COPD, laryngeal cancer, GERD. Past surgical history of partial gastrectomy due to bleeding ulcers. Patient presented to [facility] ER on December 13 with chest pain, shortness of breath, and diaphoresis. Workup revealed NSTEMI, and he was taken urgently the same afternoon for diagnostic left heart catheterization and revascularization by Dr. Benson. Patient underwent percutaneous coronary intervention of the proximal left anterior descending artery with drug eluting stent. Cath also noted highly calcified chronic total occlusion of first diagonal branch with failed attempt at PCI. Per echocardiogram, mild LVH, EF 50% with mild anterolateral wall hypokinesis, mild diastolic dysfunction, mild AI, no significant valvular disease. Post PCI, patient was monitored in CCU overnight and transferred to telemetry unit the next day. Troponin peaked at 3.020. November: Overall hemodynamically stable since transfer to telemetry. Temp last night 101.3F, improved this morning 97F. Sinus rhythm with PACs/PVCs per tele monitoring, no overt ectopy or sustained dysrhythmia. Labs reviewed. Hypokalemic with K+ 3.4. Renal function stable. Appetite is fair this afternoon. Right groin soft without hematoma. Distal pulses palpable bilaterally. SBP 130-160 mmHg. Sinus rhythm with occasional PAC/PVC. No chest pain, dyspnea, or other anginal complaint. Patient is requesting to go home today. ASSESSMENT/PLAN: 1. NSTEMI - Post PCI of proximal LAD on 12/13 with placement of drug eluting stent. EF per echo 50%. No further anginal complaint. No overt s/s heart failure. Continue dual antiplatelet therapy with low dose ASA, Brilinta 90 mg by mouth BID. Continue statin, beta naty, ARB. 2. CORONARY ARTERY DISEASE - Continue current plan of care. 3. HYPERTENSION - BP still suboptimally controlled at times. Will adjust antihypertensive regimen. 4. CAROTID ARTERY DISEASE - Chronic, s/p carotid artery stenting; Appears stable at this time without neurological symptoms. 5. EMPHYSEMA/COPD - Chronic; Appears stable at this time; Continue DuoNebs 6. GERD - Continue PPI. 7. HYPOKALEMIA - K+ 3.4. K-Dur 20 meq by mouth x 1 dose today. The patient is requesting to be discharged home. He has not had any recurrent angina and is clinically stable. He has been on Benicar, but cannot afford this and has been using samples. We will try him on Cozaar at discharge to see if this is better covered by his insurance company. I have emphasized the importance of dual antiplatelet therapy compliance with him and his . The importance of tobacco cessation has been addressed. Diagnosis - Discharge Diagnosis (1) Non-STEMI (non-ST elevated myocardial infarction) Status: Acute (2) COPD (chronic obstructive pulmonary disease) Status: Chronic (3) Nicotine addiction Status: Chronic (4) Emphysema of lung Status: Chronic (5) HTN (hypertension) Status: Chronic (6) GERD (gastroesophageal reflux disease) Status: Chronic Specialty Discharge - Follow Up or Referrals Discharge Plan - Discharge Data Disposition: Disch To Home/Self Care Condition at Discharge: Stable Discharge Diet: heart healthy Activity: no lifting (For 1 week) Hygiene: may shower Driving: no restrictions - Discharge Medications New Atorvastatin [Lipitor] 80 mg PO BEDTIME #30 tablet Carvedilol [Coreg] 6.25 mg PO BID #60 tablet Valsartan [Diovan] 160 mg PO BID #60 tablet Aspirin EC Tab 81 mg PO DAILY #30 tablet Ticagrelor [Brilinta] 90 mg PO BID #60 tablet Continue Omeprazole 20 mg PO BEDTIME Albuterol/Ipratropium Neb [Duoneb] 3 ml RESP TX TID #90 nebulization solution Tiotropium Birney [Spiriva Respimat] 2 puff INH QAM Discontinued Olmesartan [Benicar] 20 mg PO BEDTIME - Follow Up or Referral Follow Up: Brice Madrid MD [Physician] - 2 Weeks - Forms/Instructions Instructions: Myocardial Infarction (GEN), Left Heart Catheterization (DC), How to Stop Smoking (GEN), Heart Healthy Diet (GEN), Cigarette Smoking and Your Health (GEN), Coronary Intravascular Stent Placement, [place] [employer] [place] [employer] (GEN) Exam - Constitutional Vitals: Period Temp Pulse Resp BP Sys/Monroe Pulse Ox Last 24 Hr 97 F-101.3 F 60-86 16-20 118-163/58-79 92-99 Discharge Results Labs on day of discharge: Labs from last 24 hours 12/16/16 04:37 Sodium 143 Potassium 3.4 L Chloride 112 H Carbon Dioxide 23 Anion Gap 11.4 BUN 10 Creatinine 0.60 L GFR Calculation 106 BUN/Creatinine Ratio 16.00 Glucose 83 Calculated Osmolality 282.0 Calcium 8.3 L DS: Provider Date of admission: 12/13/16 13:37 Primary care physician: Ham Sherman Attending physician on admission: Brice Madrid MD Consults: 12/13/16 13:37 Consult to Cardiac Rehabilitation [CONS] Routine Reason for Cardiac Rehabilitation: Risk Factor Modification Discharging clinician: Valentina Verde, Expected date of discharge: 12/16/16
== END 2016-12-16 18:00 | disposition home or self-care (01) | DRG 247 ==
LOC: EDUNIT# → EDBD → N.ED 10:17 → N.CL 11:44 → N.CC 13:37 → N.TELEN 12-14 11:46
PROVIDERS: ADMIT Internal Medicine Cardiovascular Disease; ATTEND Internal Medicine Cardiovascular Disease
PROC: CLCCHCL (ICD-10-PCS; 2016-12-13 12:15)

== ENCOUNTER 2017-04-13 06:40 | Inpatient (IN) ==
[2017-04-13] MEDS ORDERED: SODIUM CHLORIDE 0.9% 500 ML IV STA (07:16)
[2017-04-13 07:39] LABS: Basophils # 0.1 10*3/uL (0.0-0.2); Basophils % 0.4 % (0.0-0.8); Eosinophils % 0.1 % (0.00-10.9); Hematocrit 36.6 VOL% (42.0-52.0); Hemoglobin 11.6 GM/DL (14.0-18.0); Immature Granulocytes % 0.4 %; Immature Granulocytes Absolute 0.05 #; Lymphocytes % 7.2 % (21.2-54.2); Mean Corpuscular HGB Conc 31.7 GM/DL (32-36); Mean Corpuscular Hemoglobin 28 PG (27-34); Mean Corpuscular Volume 86.7 FL (87-102); Mean Platelet Volume 9.9 FL (9.6-12.0); Monocytes # 0.8 10*3/uL (0.11-0.8); Monocytes % 5.5 % (1.7-12.7); Neutrophils # 12.2 10*3/uL (1.4-7.4); Neutrophils % 86.4 % (38.7-73.9); Platelet Count 333 T/CUMM (130-400); Red Blood Count 4.22 MC/CUMM (3.8-5.5); Red Cell Distribution Width 17.2 % (9.3-17.3); White Blood Count 14.1 T/CUMM (4-12)
[2017-04-13 07:49] LABS: PT Patient Result 10.5 SECS; Partial Thromboplastin Time 25.4 SECS (0-40)
[2017-04-13 08:20] LABS: Alanine Aminotransferase 9 U/L (16-61); Albumin 2.5 G/DL (3.4-5.0); Alkaline Phosphatase 79 U/L (45-117); Aspartate Amino Transferase 11 U/L (0-37); Blood Urea Nitrogen 12 MG/DL (7-18); Calcium 9.2 MG/DL (8.5-10.1); Glucose 109 MG/DL (74-106); Osmolality,Calculated 281.3 MOS/KG (273-304); Potassium 3.9 MMOL/L (3.5-5.1); Sodium 141 MMOL/L (136-145); Total Protein 6.2 G/DL (6.4-8.3)
[2017-04-13 08:52] LABS: Apearance,Urine CLOUDY (Clear); Bacteria,Urine Few /HPF (Few); Bilirubin,Urine Negative (Negative); Blood, Urine Negative (Negative); Glucose,Urine (UA) Negative (Negative); Ketones,Urine Negative (Negative); Mucus,Urine Few /LPF (Occasional); Nitrite,Urine Negative (Negative); Protein,Urine Negative; RBC,Urine 4 /HPF (0-4); Urine Color Yellow (Yellow); Urine Specific Gravity 1.013 (1.001-1.035); WBC,Urine 13 /HPF (0-6)
[2017-04-13 08:53] LABS: Barbiturates Screen,Urine Negative (Negative); Benzodiazepines Screen,Urine Negative (Negative); Cannabinoid Screen,Urine Negative (Negative); Opiate Screen,Urine Positive (Negative); Phencyclidine Screen,Urine Negative (Negative)
[2017-04-13] MEDS ORDERED: ASPIRIN 325 MG TABLET PO STA (09:21)
[2017-04-13] MEDS ORDERED: cefTRIAXone 1,000 MG in SODIUM CHLORIDE 0.9% 100 ML IV STA (09:29)
[2017-04-13] MEDS ORDERED: LACTULOSE 20 GM/30 ML UDCUP PO PRN (10:32)
[2017-04-13] MEDS ORDERED: ONDANSETRON 4 MG/2 ML VIAL IV PRN (10:32)
[2017-04-13] MEDS ORDERED: ALBUTEROL/IPRATROPIUM 3 ML NEB RESP TX PRN (10:32)
[2017-04-13] MEDS ORDERED: NICOTINE 21 MG/24 HR PATCH TRANSDERM PRN (10:32)
[2017-04-13] MEDS ORDERED: MAGNESIUM SULF RIDER 2 GM in PREMIX 1 EACH IV PRN (10:32)
[2017-04-13] MEDS ORDERED: POTASSIUM CHLORIDE 20 MEQ TABLET PO PRN (10:32)
[2017-04-13] MEDS ORDERED: DOCUSATE SODIUM 100 MG CAPSULE PO PRN (10:32)
[2017-04-13] MEDS ORDERED: cefTRIAXone 1,000 MG VIAL ONE (10:40)
[2017-04-13] MEDS ORDERED: ASPIRIN 325 MG TABLET ONE (10:40)
[2017-04-13 11:07] LABS: Risk Ratio 2.45; Thyroid Stimulating Hormone 2.46 uIU/ml (0.358-3.74); VLDL CHOLESTEROL 8.4 MG/DL
[2017-04-13] MEDS: cefTRIAXone 1,000 MG in SYRINGE 1 EACH IV SCH (12:02)
[2017-04-13] MEDS: AZITHROMYCIN INJ 500 MG in SODIUM CHLORIDE 0.9% 250 ML IV SCH (13:10)
[2017-04-13] MEDS: PANTOPRAZOLE 40 MG TABLET PO SCH (13:23)
[2017-04-13] MEDS: ENOXAPARIN 40 MG/0.4 ML SYRINGE SUBCUT SCH (14:03)
[2017-04-13 15:06] LABS: Free T4 (Free Thyroxine) 1.12 NG/DL (0.76-1.46); Thyroid Stimulating Hormone 1.44 uIU/ml (0.358-3.74)
[2017-04-13] MEDS: SODIUM CHLORIDE 0.45% 1,000 ML IV SCH (15:25)
[2017-04-13] MEDS ORDERED: NON-FORMULARY MEDICATION (Omeprazole [Omeprazole] 20 MG) PO SCH (21:00)
[2017-04-13] MEDS: ATORVASTATIN 40 MG TABLET PO SCH (21:48)
[2017-04-13] MEDS: VALSARTAN 160 MG TABLET PO SCH (21:49)
[2017-04-13] MEDS: TICAGRELOR 90 MG TABLET PO SCH (21:49)
[2017-04-13] MEDS: CARVEDILOL 6.25 MG TABLET PO SCH (21:49)
[2017-04-14 05:05] LABS: Basophils # 0.1 10*3/uL (0.0-0.2); Basophils % 0.6 % (0.0-0.8); Eosinophils # 0.1 10*3/uL (0.0-0.87); Eosinophils % 1.2 % (0.00-10.9); Hematocrit 33.1 VOL% (42.0-52.0); Hemoglobin 10.6 GM/DL (14.0-18.0); Immature Granulocytes % 0.4 %; Immature Granulocytes Absolute 0.04 #; Lymphocytes # 1.7 10*3/uL (1.4-4.0); Lymphocytes % 18.2 % (21.2-54.2); Mean Corpuscular Hemoglobin 27 PG (27-34); Mean Corpuscular Volume 85.5 FL (87-102); Mean Platelet Volume 10.7 FL (9.6-12.0); Monocytes # 0.9 10*3/uL (0.11-0.8); Monocytes % 9.4 % (1.7-12.7); Neutrophils # 6.7 10*3/uL (1.4-7.4); Neutrophils % 70.2 % (38.7-73.9); Platelet Count 317 T/CUMM (130-400); Red Blood Count 3.87 MC/CUMM (3.8-5.5); Red Cell Distribution Width 17.1 % (9.3-17.3); White Blood Count 9.5 T/CUMM (4-12)
[2017-04-14 05:30] LABS: Calcium 8.2 MG/DL (8.5-10.1); Osmolality,Calculated 277.4 MOS/KG (273-304)
[2017-04-14 05:33] LABS: Risk Ratio 2.32; VLDL CHOLESTEROL 10.8 MG/DL
[2017-04-14] MEDS: SODIUM CHLORIDE 0.45% 1,000 ML IV SCH ×2 (06:19→18:10)
[2017-04-14] MEDS ORDERED: ASPIRIN 325 MG TABLET PO SCH (09:00)
[2017-04-14] MEDS: TICAGRELOR 90 MG TABLET PO SCH ×2 (09:51→21:50)
[2017-04-14] MEDS: VALSARTAN 160 MG TABLET PO SCH ×2 (09:51→21:50)
[2017-04-14] MEDS: PANTOPRAZOLE 40 MG TABLET PO SCH (09:51)
[2017-04-14] MEDS: ASPIRIN CHEW 81 MG TABLET PO SCH (09:51)
[2017-04-14] MEDS: CARVEDILOL 6.25 MG TABLET PO SCH ×2 (09:51→21:50)
[2017-04-14] MEDS: ACETAMINOPHEN 325 MG TABLET PO PRN (10:06)
[2017-04-14] MEDS: IPRATROPIUM 500 MCG/2.5 ML NEB RESP TX SCH ×3 (12:42→21:08)
[2017-04-14] MEDS: ENOXAPARIN 40 MG/0.4 ML SYRINGE SUBCUT SCH (14:04)
[2017-04-14] MEDS: cefTRIAXone 1,000 MG in SYRINGE 1 EACH IV SCH (14:05)
[2017-04-14] MEDS: AZITHROMYCIN INJ 500 MG in SODIUM CHLORIDE 0.9% 250 ML IV SCH (14:11)
[2017-04-14] MEDS: ATORVASTATIN 40 MG TABLET PO SCH (21:50)
[2017-04-15 04:14] LABS: Basophils # 0.1 10*3/uL (0.0-0.2); Basophils % 0.7 % (0.0-0.8); Eosinophils # 0.2 10*3/uL (0.0-0.87); Eosinophils % 2.3 % (0.00-10.9); Hematocrit 32.1 VOL% (42.0-52.0); Hemoglobin 10.2 GM/DL (14.0-18.0); Immature Granulocytes % 0.3 %; Immature Granulocytes Absolute 0.02 #; Lymphocytes # 1.5 10*3/uL (1.4-4.0); Mean Corpuscular HGB Conc 31.8 GM/DL (32-36); Mean Corpuscular Hemoglobin 27 PG (27-34); Mean Corpuscular Volume 85.4 FL (87-102); Mean Platelet Volume 10.8 FL (9.6-12.0); Monocytes # 0.9 10*3/uL (0.11-0.8); Monocytes % 12.4 % (1.7-12.7); Neutrophils # 4.7 10*3/uL (1.4-7.4); Neutrophils % 64.3 % (38.7-73.9); Platelet Count 320 T/CUMM (130-400); Red Blood Count 3.76 MC/CUMM (3.8-5.5); Red Cell Distribution Width 17.1 % (9.3-17.3); White Blood Count 7.3 T/CUMM (4-12)
[2017-04-15 04:44] LABS: Calcium 8.1 MG/DL (8.5-10.1); Osmolality,Calculated 282.1 MOS/KG (273-304); Potassium 3.9 MMOL/L (3.5-5.1)
[2017-04-15] MEDS: SODIUM CHLORIDE 0.45% 1,000 ML IV SCH ×2 (07:01→17:41)
[2017-04-15] MEDS: ACETAMINOPHEN 325 MG TABLET PO PRN ×3 (07:02→21:41)
[2017-04-15] MEDS: IPRATROPIUM 500 MCG/2.5 ML NEB RESP TX SCH ×4 (08:42→20:23)
[2017-04-15] MEDS: CARVEDILOL 6.25 MG TABLET PO SCH ×2 (09:12→21:40)
[2017-04-15] MEDS: ASPIRIN CHEW 81 MG TABLET PO SCH (09:12)
[2017-04-15] MEDS: VALSARTAN 160 MG TABLET PO SCH ×2 (09:12→21:40)
[2017-04-15] MEDS: PANTOPRAZOLE 40 MG TABLET PO SCH (09:12)
[2017-04-15] MEDS: TICAGRELOR 90 MG TABLET PO SCH ×2 (09:12→21:40)
[2017-04-15] MEDS: cefTRIAXone 1,000 MG in SYRINGE 1 EACH IV SCH (13:51)
[2017-04-15] MEDS: ENOXAPARIN 40 MG/0.4 ML SYRINGE SUBCUT SCH (13:51)
[2017-04-15] MEDS: DILTIAZEM CD 120 MG CAPSULE PO SCH (16:01)
[2017-04-15] MEDS: ASCORBIC ACID 500 MG TABLET PO SCH ×2 (16:01→21:40)
[2017-04-15] MEDS ORDERED: MAGNESIUM SULF RIDER 2 GM in PREMIX 1 EACH IV PRN (16:16)
[2017-04-15] MEDS ORDERED: POTASSIUM CHLORIDE RIDER 10 MEQ in PREMIX 1 EACH IV PRN (16:16)
[2017-04-15] MEDS: LEVOFLOXACIN INJ 750 MG in PREMIX 1 EACH IV SCH (17:41)
[2017-04-15] MEDS: ATORVASTATIN 40 MG TABLET PO SCH (21:40)
[2017-04-16] MEDS: SODIUM CHLORIDE 0.9% 1,000 ML IV SCH ×3 (03:51→13:28)
[2017-04-16 05:02] LABS: Basophils # 0.1 10*3/uL (0.0-0.2); Basophils % 1.1 % (0.0-0.8); Eosinophils # 0.2 10*3/uL (0.0-0.87); Eosinophils % 2.3 % (0.00-10.9); Hematocrit 35.3 VOL% (42.0-52.0); Hemoglobin 11.1 GM/DL (14.0-18.0); Immature Granulocytes % 0.3 %; Immature Granulocytes Absolute 0.02 #; Lymphocytes # 1.5 10*3/uL (1.4-4.0); Lymphocytes % 22.7 % (21.2-54.2); Mean Corpuscular HGB Conc 31.4 GM/DL (32-36); Mean Corpuscular Hemoglobin 27 PG (27-34); Mean Corpuscular Volume 85.9 FL (87-102); Mean Platelet Volume 10.9 FL (9.6-12.0); Monocytes # 0.8 10*3/uL (0.11-0.8); Monocytes % 11.6 % (1.7-12.7); Platelet Count 372 T/CUMM (130-400); Red Blood Count 4.11 MC/CUMM (3.8-5.5); Red Cell Distribution Width 16.8 % (9.3-17.3); White Blood Count 6.5 T/CUMM (4-12)
[2017-04-16 05:32] LABS: Calcium 8.6 MG/DL (8.5-10.1); Osmolality,Calculated 279.3 MOS/KG (273-304); Potassium 3.9 MMOL/L (3.5-5.1)
[2017-04-16] MEDS ORDERED: diphenhydrAMINE CAP 25 MG CAPSULE PO ONE (07:00)
[2017-04-16] MEDS ORDERED: DIAZEPAM 5 MG TABLET PO ONE (07:00)
[2017-04-16] MEDS: IPRATROPIUM 500 MCG/2.5 ML NEB RESP TX SCH ×4 (07:47→19:53)
[2017-04-16] MEDS: VALSARTAN 160 MG TABLET PO SCH ×2 (09:03→21:25)
[2017-04-16] MEDS: CARVEDILOL 6.25 MG TABLET PO SCH ×2 (09:04→21:25)
[2017-04-16] MEDS: DILTIAZEM CD 120 MG CAPSULE PO SCH (09:04)
[2017-04-16] MEDS: TICAGRELOR 90 MG TABLET PO SCH ×2 (09:04→21:25)
[2017-04-16] MEDS: PANTOPRAZOLE 40 MG TABLET PO SCH (09:04)
[2017-04-16] MEDS: ASPIRIN CHEW 81 MG TABLET PO SCH (09:05)
[2017-04-16] MEDS: ASCORBIC ACID 500 MG TABLET PO SCH ×2 (09:05→21:25)
[2017-04-16] MEDS ORDERED: HEPARIN/NACL 0.9% 2 UNITS/ML 1,000 ML IV ONE (09:55)
[2017-04-16] MEDS ORDERED: LIDOCAINE 1% 20 ML VIAL ONE (09:55)
[2017-04-16] MEDS ORDERED: MIDAZOLAM 2 MG/2 ML VIAL ONE (10:11)
[2017-04-16] MEDS ORDERED: HYDROmorphone 2 MG/1 ML VIAL ONE (10:11)
[2017-04-16] MEDS ORDERED: LABETALOL 20 MG/4 ML SYRINGE IV ONE ×2 (10:30→11:23)
[2017-04-16] MEDS ORDERED: BIVALIRUDIN 250 MG VIAL IV ONE (10:51)
[2017-04-16] MEDS ORDERED: hydrALAZINE 20 MG/1 ML VIAL ONE ×2 (11:21→12:13)
[2017-04-16] MEDS: SODIUM CHLORIDE 0.45% 1,000 ML IV SCH (11:23)
[2017-04-16 14:56] LABS: Apearance,Urine CLEAR (Clear); Bilirubin,Urine Negative (Negative); Blood, Urine Negative (Negative); Glucose,Urine (UA) Negative (Negative); Hyaline Casts,Urine 1 /LPF (0-3); Ketones,Urine Negative (Negative); Nitrite,Urine Negative (Negative); Protein,Urine Negative; RBC,Urine 1 /HPF (0-4); Urine Color Colorless (Yellow); Urine Urobilinogen < 2.0 EU/DL (0.2-1.0); WBC,Urine 1 /HPF (0-6)
[2017-04-16] MEDS: LEVOFLOXACIN INJ 750 MG in PREMIX 1 EACH IV SCH (16:23)
[2017-04-16] MEDS ORDERED: ZALEPLON 5 MG CAPSULE PO PRN (21:00)
[2017-04-16] MEDS: ATORVASTATIN 40 MG TABLET PO SCH (21:26)
[2017-04-16] MEDS: ACETAMINOPHEN 325 MG TABLET PO PRN (21:32)
[2017-04-17 05:45] LABS: Basophils # 0.1 10*3/uL (0.0-0.2); Basophils % 0.6 % (0.0-0.8); Eosinophils # 0.1 10*3/uL (0.0-0.87); Eosinophils % 1.4 % (0.00-10.9); Hematocrit 29.3 VOL% (42.0-52.0); Hemoglobin 9.4 GM/DL (14.0-18.0); Immature Granulocytes % 0.6 %; Immature Granulocytes Absolute 0.05 #; Lymphocytes # 1.6 10*3/uL (1.4-4.0); Lymphocytes % 18.7 % (21.2-54.2); Mean Corpuscular HGB Conc 32.1 GM/DL (32-36); Mean Corpuscular Hemoglobin 28 PG (27-34); Mean Corpuscular Volume 85.9 FL (87-102); Mean Platelet Volume 10.7 FL (9.6-12.0); Monocytes % 11.5 % (1.7-12.7); Neutrophils # 5.9 10*3/uL (1.4-7.4); Neutrophils % 67.2 % (38.7-73.9); Platelet Count 320 T/CUMM (130-400); Red Blood Count 3.41 MC/CUMM (3.8-5.5); Red Cell Distribution Width 16.9 % (9.3-17.3); White Blood Count 8.8 T/CUMM (4-12)
[2017-04-17 06:26] LABS: Calcium 8.1 MG/DL (8.5-10.1); Osmolality,Calculated 277.3 MOS/KG (273-304); Potassium 3.8 MMOL/L (3.5-5.1)
[2017-04-17 06:37] LABS: Troponin I Only 5.03 NG/ML (0.00-0.045)
[2017-04-17] MEDS: IPRATROPIUM 500 MCG/2.5 ML NEB RESP TX SCH ×4 (07:19→20:48)
[2017-04-17] MEDS: TICAGRELOR 90 MG TABLET PO SCH ×2 (10:17→21:02)
[2017-04-17] MEDS: PANTOPRAZOLE 40 MG TABLET PO SCH (10:18)
[2017-04-17] MEDS: CARVEDILOL 6.25 MG TABLET PO SCH ×2 (10:18→21:03)
[2017-04-17] MEDS: DILTIAZEM CD 120 MG CAPSULE PO SCH ×2 (10:18→21:02)
[2017-04-17] MEDS: ASPIRIN CHEW 81 MG TABLET PO SCH (10:18)
[2017-04-17] MEDS: VALSARTAN 160 MG TABLET PO SCH ×2 (10:18→21:02)
[2017-04-17] MEDS: ASCORBIC ACID 500 MG TABLET PO SCH ×2 (10:18→21:02)
[2017-04-17] MEDS: LEVOFLOXACIN INJ 750 MG in PREMIX 1 EACH IV SCH (17:46)
[2017-04-17] MEDS: ATORVASTATIN 40 MG TABLET PO SCH (21:02)
[2017-04-18 05:59] LABS: Basophils # 0.1 10*3/uL (0.0-0.2); Basophils % 0.5 % (0.0-0.8); Eosinophils # 0.1 10*3/uL (0.0-0.87); Eosinophils % 1.5 % (0.00-10.9); Hematocrit 27.2 VOL% (42.0-52.0); Hemoglobin 8.6 GM/DL (14.0-18.0); Immature Granulocytes % 0.5 %; Immature Granulocytes Absolute 0.05 #; Lymphocytes # 1.6 10*3/uL (1.4-4.0); Lymphocytes % 17.5 % (21.2-54.2); Mean Corpuscular HGB Conc 31.6 GM/DL (32-36); Mean Corpuscular Hemoglobin 27 PG (27-34); Mean Corpuscular Volume 86.3 FL (87-102); Mean Platelet Volume 10.9 FL (9.6-12.0); Monocytes # 1.2 10*3/uL (0.11-0.8); Monocytes % 12.6 % (1.7-12.7); Neutrophils # 6.2 10*3/uL (1.4-7.4); Neutrophils % 67.4 % (38.7-73.9); Platelet Count 307 T/CUMM (130-400); Red Blood Count 3.15 MC/CUMM (3.8-5.5); Red Cell Distribution Width 16.9 % (9.3-17.3); White Blood Count 9.2 T/CUMM (4-12)
[2017-04-18 06:24] LABS: Calcium 8.3 MG/DL (8.5-10.1); Potassium 3.9 MMOL/L (3.5-5.1)
[2017-04-18] MEDS: IPRATROPIUM 500 MCG/2.5 ML NEB RESP TX SCH (07:14)
[2017-04-18 07:53] VITALS: BP 138/72
[2017-04-18] MEDS: ASCORBIC ACID 500 MG TABLET PO SCH (09:24)
[2017-04-18] MEDS: PANTOPRAZOLE 40 MG TABLET PO SCH (09:24)
[2017-04-18] MEDS: VALSARTAN 160 MG TABLET PO SCH (09:24)
[2017-04-18] MEDS: DILTIAZEM CD 120 MG CAPSULE PO SCH (09:24)
[2017-04-18] MEDS: TICAGRELOR 90 MG TABLET PO SCH (09:24)
[2017-04-18] MEDS: ASPIRIN CHEW 81 MG TABLET PO SCH (09:24)
[2017-04-18] MEDS: CARVEDILOL 6.25 MG TABLET PO SCH (09:24)
== END 2017-04-18 11:40 | disposition home health service (06) | DRG 981 ==
LOC: EDBD → EDUNIT# → N.ED 06:40 → N.EDINP 09:31 → N.TELES 11:06
PROVIDERS: ADMIT Internal Medicine; ATTEND Internal Medicine
PROC: CLCCHCL (ICD-10-PCS; 2017-04-16 10:45)